=== PATIENT | male | born 1940 | race African-American/Black ===

== ENCOUNTER → 2017-02-19 | Outpatient (CLI) | payer OTHER, BC ==
[~2017-02-19] VITALS: Ht 175.3 cm; Wt 73.0 kg
[~2017-02-19] MED LIST: ALEVE220 MG PO; ALLOPURINOL 10100 M1 PO; ASPIRIN81 M2 PO; DILTIAZEM HCL90 MG PO; DIOVAN320 MG PO; PRAVACHOL40 MG PO
--- NOTE | ~2017-02-19 | HPC ---
[facility] [place] [address] PAIN MANAGEMENT CONSULTATION Name: CHRISTINA CERVANTES Room #: REG [facility]..#: [id number] Admission: 02/19/17 Attend Phys: Cheo Mcmanus DO Discharge: Date of : 41 Report #: [id number] THIS REPORT FOR: //name// CC: Cheo Lewis MD DATE OF SERVICE: 02/19/2017 REFERRING PHYSICIAN: Melia Lewis MD CHIEF COMPLAINT: Low back pain. HISTORY OF PRESENT ILLNESS: As you know, the patient is a 76-year-old male who has had a very longstanding history of low back pain, pain began 07/31/1974. The patient indicates no specific injury or trauma that may have led to symptoms. He has been dealing with pain for nearly 27 years. He has been referred to our service by his primary care physician to address 28-year-old back pain. Pain is located on the left side of the back, there is no radiation of symptoms beyond the upper buttock area. He states he has trialled no conservative treatment, he has undergone no physical therapy. He has been referred to our service to trial intraarticular injections. He indicates pain is today continuous and constant, describes pain as cramping, stabbing and tender, places current pain score 8/10, daily average at 8/10, worst pain has been is 10/10. The patient states moving, lifting, and bending exacerbates symptoms, nothing improves pain to date. PAST MEDICAL HISTORY: 1. Hypertension. 2. Degenerative joint disease. 3. Osteoarthritis. 4. Dyslipidemia. 5. Gout. PAST SURGICAL HISTORY: Ulnar transposition. SOCIAL HISTORY: The patient denies tobacco, IV or illicit drug use, admits to 6 alcoholic beverages per week. He is a retired [employer] worker. He is accompanied by his who is present in room today. REVIEW OF SYSTEMS: Positive for weight gain, wearing corrective eyewear, low back pain present for 27 years, gout, hypertension, and dyslipidemia. All other review of systems negative per 12-point review of systems other than those listed in history of present illness. PAIN IMPACT SCORE: 42/70 indicating fhdyaarf-fm-qimktl interference of daily [facility] [address] [place] [address] PAIN MANAGEMENT CONSULTATION Name: CHRISTINA CERVANTES Room #: REG [facility].#: [id number] Admission: 02/19/17 Attend Phys: Cheo Mcmanus DO Discharge: Date of : 41 Report #: [id number] activities secondary to pain. ALLERGIES: No known drug allergies. CURRENT MEDICATIONS: Diltiazem 80 mg once a day, naproxen sodium 220 mg every 12 hours, aspirin 81 mg per day, pravastatin 40 mg per day, allopurinol 100 mg once a day, and valsartan 320 mg once a day. IMAGING: No imaging available. PHYSICAL EXAMINATION: VITAL SIGNS: Blood pressure 126/86, pulse 68, respiratory rate 18 and unlabored, the patient is 100% on room air, height 5 feet 9 inches tall, weight 161 pounds, and BMI calculated 23.8. GENERAL: Well-developed, well-nourished, well-hydrated 76-year-old male, he appears his stated age, placing current pain score at around 8/10, left-sided specifically. HEENT: Normocephalic, atraumatic. Pupils are equal, round, and reactive to light. Extraocular muscles are intact. Sclerae nonicteric without injection. NEUROLOGIC: Cranial nerves 2-12 are grossly intact. Speech is fluent. The patient deemed a good historian. LUNGS: Clear. No wheeze, rhonchi, or rales. CARDIOVASCULAR: Regular. No appreciable gallop or rub. ABDOMEN: Soft, nontender, nondistended, normoactive bowel sounds. EXTREMITIES: Show no clubbing, no cyanosis, and no edema. MUSCULOSKELETAL: The patient has palpatory tenderness over the lower lumbar spine directly over the L4-L5, L5-S1 intraarticular facet area. He is also experiencing some right-sided pain, but to a much lesser extent. Seated straight leg raising negative. Supine straight leg raising negative. Raul's test is negative. Modified Gaenslen's positive for axial low back pain. Ankle clonus negative. Babinski is negative. Muscle bulk and tone equal and symmetrical, intact to light touch from L1 through S2 dermatomes. Deep tendon reflexes equal and symmetrical at patella and Achilles. Ankle clonus negative. Babinski is negative. Gait normal, stance slightly forward flexed lumbar spine, loss of lordotic curvature. Lumbar provocation testing including extension, rotation, lateral flexion all intensify axial back pain. ASSESSMENT: 1. 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 2. Myofascial pain. 3. Chronic intractable pain. PLAN: 1. The patient has been referred to our service for 28-year-old back pain issues that began in 07/31/1974. The patient by physical exam appears to be suffering from arthritic changes typical for a 76-year-old male. The patient [address] [address] PAIN MANAGEMENT CONSULTATION Name: CHRISTINA CERVANTES Room #: REG [facility]#: [id number] Admission: 02/19/17 Attend Phys: Cheo Mcmanus DO Discharge: Date of : 41 Report #: [id number] has trialed no conservative treatments, has been taking some nuko-qax-taqfxil naproxen with some benefit, but has increasing pain issues. He is subsequently referred to our clinic to discuss options for treatment for facet arthropathy. He comes to us with no imaging studies, so it was difficult to determine the extent of arthritic changes that are present, though given his age and his position, the likely source of the symptoms are the L4-L5, L5-S1 facet joints in the lumbar region. We discussed with the patient treatment options for facet arthropathy pain that has been present for greater than 25 years, these would include physical therapy, stretching exercise, core strengthening, the mainstay treatment for arthritic changes of any joint. We discussed medication management utilizing nonsteroidal anti-inflammatory therapy and intermittent muscle relaxants if necessary for muscle spasming. We discussed intra-articular facet injections, medial branch nerve blocks and radiofrequency lesioning. Surgical options I believe at this point would not be present unless the patient has significant spinal stenosis. We discussed these treatment options today, after reviewing the risks and benefits of all proposed treatment options, the patient chose to undergo bilateral L4-L5, L5-S1 intra-articular facet injections under fluoroscopic guidance. The patient was advised the risks and benefits of a procedure such as indicated above. The risks include, but are not necessarily limited to bleeding, bruising, infection, worsening of pain, no relief of pain, also risk of temporary or permanent muscle weakness, temporary or permanent nerve damage, possible paralysis and , the patient states understood and wished to proceed. 2. No medication changes were made at today's visit, the patient will continue current medical therapy as previously prescribed. 3. We will see the patient back in followup visit in approximately a month and a half, at that time we will review the efficacy of today's intra-articular facet injections and determine if repeat injection would be necessary or progression towards radiofrequency lesioning. 4. We wish to thank Dr. Melia Lewis for the referral of this patient to our clinic. We will keep you apprised of his response to treatment for his 25-year-old low back pain. Again, we wish to thank you for the opportunity to see this patient in consultation. PROCEDURE NOTE DESCRIPTION OF PROCEDURE: Bilateral L4-L5, L5-S1 intra-articular facet injections under fluoroscopic guidance. After obtaining written consent, the patient was taken back to fluoroscopy suite, placed in prone position with pillow under abdomen to decrease lumbar lordosis. Skin overlying lumbosacral area prepped and draped in aseptic fashion. The intraarticular facet positions were identified under AP fluoroscopy. We utilized a combination of caudal [place] [address] PAIN MANAGEMENT CONSULTATION Name: CHRISTINA CERVANTES Room #: REG [facility]#: [id number] Admission: 02/19/17 Attend Phys: Cheo Mcmanus DO Discharge: Date of : 41 Report #: [id number] angulation of the fluoroscopic imaging to obtain and visualize the facet joints at the L4-L5 level and L5-S1 level. The area overlying the injection site was then prepped with chlorhexidine and sterile markers were placed over each of the injection sites. A 27-gauge 1-1/4-inch needle was used to anesthetize the skin and the subcutaneous tissue with 3 mL at each site for a total of 12 mL of lidocaine being provided. Four 22-gauge 3-1/2-inch spinal needles were advanced under fluoroscopic guidance to the facet joints, 2 at the L4-L5 level and 2 at the L5-S1 level. The needles were advanced into the joint, but not into the articular cartilage. After entering the joint, aspiration was noted to be negative for heme or cerebrospinal fluid in all four positions. Next, 0.2 mL of Omnipaque was injected at each of the sites demonstrating excellent facet arthrograms at L4-L5 and L5-S1 bilaterally. After the negative aspiration for heme, 1.5 mL of a solution containing 2 mL 40 mg per mL, 80 mg total triamcinolone and 4 mL of bupivacaine 0.5% was injected at each of the sites. [place] were retracted chcf, flushed with 1 mL of 1% lidocaine and removed. The patient tolerated the procedure well, carefully escorted to the recovery room in stable condition. After meeting our discharge criteria, the patient was then discharged home. By: [id number] Cheo Mcmanus DO /nt
[2017-02-19 10:33] VITALS: BP 126/86
== END | disposition home or self-care (01) ==
LOC: PAIN 07:16
DX: M47.817 Spondylosis without myelopathy or radiculopathy, lumbosacral region (principal); M79.1 Myalgia; G89.29 Other chronic pain; Z79.899 Other long term (current) drug therapy

== ENCOUNTER → 2017-04-29 | Outpatient (CLI) | payer OTHER, BC ==
[~2017-04-29] VITALS: Ht 175.3 cm; Wt 72.7 kg
--- NOTE | ~2017-04-29 | HPC ---
[facility] [place] [address] PAIN MANAGEMENT CONSULTATION Name: CHRISTINA CERVANTES Room #: REG [facility]..#: [id number] Admission: 04/29/17 Attend Phys: Cheo Mcmanus DO Discharge: Date of : 41 Report #: [id number] THIS REPORT FOR: //name// CC: Cheo Lewis MD DATE OF SERVICE: 04/29/2017 REFERRING PHYSICIAN: Melia Lewis MD CHIEF COMPLAINT: Low back pain. HISTORY OF PRESENT ILLNESS: As you know, the patient is a very pleasant 76-year-old male with longstanding history of low back pain began in 1974. He indicates no specific injury or trauma that led to symptoms. He was seen in our clinic per the request of Dr. Lewis on 02/19/2017, diagnosed with lumbosacral spondylosis without radiculopathy, myofascial pain, chronic pain related to his facet arthropathy. He underwent an intraarticular facet injection at L4-L5 and L5-S1 bilaterally with reported 80% improvement in overall pain, which is ongoing. He now places pain score 3/10, he returns today in followup visit requesting to undergo the second in series of these injections in hopes of improving pain further. He has had no new injury, no new trauma or changes in medical history since our last visit. ALLERGIES: No known drug allergies. CURRENT MEDICATIONS: Diltiazem 90 mg once a day, naproxen 220 mg 4 times a day, aspirin 81 mg per day, pravastatin 40 mg per day, allopurinol 100 mg per day, and valsartan 320 mg per day. SOCIAL HISTORY: The patient denies tobacco, IV or illicit drug use, admits to 6 alcoholic beverages per week. He is a retired [employer] employee. He is accompanied by his significant other. IMAGING: No new imaging available. PHYSICAL EXAMINATION: VITAL SIGNS: Blood pressure 122/77, pulse 67, respiratory rate 16 and unlabored, the patient is 100% on room air, height 5 feet 9 inches tall, weight 160.2 pounds, and BMI calculated 23.6. GENERAL: Well-developed, well-nourished, well-hydrated 76-year-old male, appearing his stated age, placing current pain score 3/10. HEENT: Normocephalic, atraumatic. Pupils are equal, round, reactive to light. Extraocular muscles are intact. Speech is fluent. EXTREMITIES: Show no clubbing, no cyanosis, [place] [address] PAIN MANAGEMENT CONSULTATION Name: CHRISTINA CERVANTES [facility] [id number] Admission: 04/29/17 Attend Phys: Cheo Mcmanus DO Discharge: Date of : 41 Report #: [id number] MUSCULOSKELETAL: Lower extremity strength appears equal and symmetrical 5/5. Seated straight leg raising negative. Supine straight leg raising negative. Ash's test negative. Modified Gaenslen's positive for axial low back pain. Lumbar provocation testing including extension, rotation, lateral flexion is met with increasing pain mainly with extension, but noted again with flexion and rotation. ASSESSMENT: 1. 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 2. Myofascial pain. 3. Chronic intractable pain. PLAN: 1. The patient returns today in followup visit reporting upwards of 80% improvement in overall pain with the intra-articular facet injections provided in January. He returns today requesting the next in the series to build on success of previous intervention. The patient denies new injury or new trauma that may have led to progression of symptoms. He has had no change in his medical history since our last visit. He has been advised risks and benefits of the intra-articular facet injections, these risks include, but are not necessarily limited to bleeding, bruising, infection, worsening of pain, no relief of pain, also risk of temporary or permanent muscle weakness, temporary or permanent nerve damage, possible joint destruction and . The patient states understood and wished to proceed. 2. No medication changes were made at today's visit. The patient to continue current medical therapy as previously prescribed. 3. The patient to return to our clinic on an as needed basis for possible repeat intra-articular facet injections or to discuss possible radiofrequency lesioning. PROCEDURE NOTE DESCRIPTION OF PROCEDURE: Bilateral L4-L5 and L5-S1 intra-articular facet injections under fluoroscopic guidance. After obtaining written consent, the patient was taken back to fluoroscopy suite, placed in prone position with pillow under abdomen to decrease lumbar lordosis. Skin overlying lumbosacral area was prepped and draped in aseptic fashion. The intra-articular positions were identified under AP fluoroscopy. We used a combination of caudal angulation and lateral angulation of the fluoroscopic imaging to obtain and visualize the facet joints at the L4-L5 and L5-S1 levels. The area overlying the injection site was then prepped with chlorhexidine and sterile markers were placed over each injection site. A 27-gauge 1-1/4-inch needle was then used to anesthetize skin and subcutaneous tissue with 2 mL of 1% lidocaine at each site for a total of 8 mL of lidocaine being provided. [address] [address] PAIN MANAGEMENT CONSULTATION Name: CHRISTINA CERVANTES Room #: REG [facility]#: [id number] Admission: 04/29/17 Attend Phys: Cheo Mcmanus DO Discharge: Date of : 41 Report #: [id number] Four 22-gauge 3-1/2-inch spinal needles with bent tips were advanced under fluoroscopic guidance into the facet joints, both on the left and right side at the L4-L5 and L5-S1 levels. [place] were advanced into the joints, but not into the articular cartilage. Once entering the joint, aspiration was noted to be negative for heme or cerebrospinal fluid in all four positions. Next, 0.2 mL of Omnipaque was injected demonstrating excellent facet arthrograms at L4-L5 and L5-S1 bilaterally. After negative aspiration for heme or cerebrospinal fluid, 1.5 mL of a solution containing 2 mL 40 mg per mL, 80 mg total triamcinolone and 4 mL of bupivacaine 0.5% was injected at each of the sites. [place] were retracted skilled nursing, flushed with 1 mL of 1% lidocaine and removed. The patient tolerated procedure well, carefully escorted to the recovery in stable condition. No apparent complications. After meeting discharge criteria, the patient discharged home. <ELECTRONICALLY SIGNED> By: Cheo Mcmanus DO 05/05/17 0812 [id number] Cheo Mcmanus, DO /nt
[2017-04-29 11:33] VITALS: BP 122/77
== END | disposition home or self-care (01) ==
LOC: PAIN 03-19 07:08
DX: M47.817 Spondylosis without myelopathy or radiculopathy, lumbosacral region (principal); M79.1 Myalgia; G89.29 Other chronic pain; Z79.82 Long term (current) use of aspirin; Z79.899 Other long term (current) drug therapy; Z98.890 Other specified postprocedural states